=== PATIENT | female | born 1960 | race Caucasian/White ===

== ENCOUNTER 2020-07-15 14:45 | Emergency (ER) | payer BC ==
[2020-07-15] MEDS ORDERED: Sodium Chloride 0.9% 10 ML Syringe FLUSH PRN (15:23)
--- NOTE | 2020-07-15 15:59 | EDM.PDOC ---
ED HPI GENERAL MEDICAL PROBLEM - General Chief Complaint: Genitourinary Problem Stated Complaint: BLOOD IN URINE/CHILLS Time Seen by Provider: 07/15/20 15:17 Source of Information: Reports: Patient, Old Records, RN Notes Reviewed History Limitations: Reports: No Limitations - History of Present Illness INITIAL COMMENTS - FREE TEXT/NARRATIVE: Patient is a 59-year-old female presenting to the emergency department with complaints of hematuria, low pelvic pain, low back pain, chills, and burning with urination. Symptoms began Thursday and have been progressively worsening since that time. She took a urine sample to [facility] yesterday and then another there today, however she has not been started on an antibiotic. She denies any known fever. Is had no nausea or vomiting. Denies diarrhea. She is had a little bit of a headache off and on for the last 3 days as well. Patient is approximately 40 days post Covid. Patient had the urinalysis results from yesterday available on her phone. Results of that showed moderate blood and 1+ leukocyte esterase. Results of urinalysis completed today at [place] showed moderate blood, nitrite positive, 1+ leukocyte esterase, 21-50 WBCs, greater than 30 RBCs, and few bacteria. Patient denies a history of kidney stones. She is had urinary tract infections in the past, however states they have never been this bad. She states that time when she would void, there would be enough blood present that it would develop clots. Lower Abdomen Pain Score (Numeric/FACES): 4 - Related Data Allergies Allergy/AdvReac Type Severity Reaction Status Date / Time No Known Allergies Allergy Verified 07/15/20 15:17 Past Medical History - Infectious Disease History Infectious Disease History: Reports: Novel Coronavirus - Past Surgical History Female Surgical History: Reports: Hysterectomy Social & Family History - Tobacco Use Tobacco Use Status *Q: Never Tobacco User Second Hand Smoke Exposure: No - Recreational Drug Use Recreational Drug Use: No ED ROS GENERAL - Review of Systems Review Of Systems: See Below Constitutional: Reports: Chills. Denies: Fever HEENT: Reports: No Symptoms Respiratory: Reports: No Symptoms. Denies: Shortness of Breath, Cough Cardiovascular: Reports: No Symptoms Endocrine: Reports: No Symptoms GI/Abdominal: Reports: Abdominal Pain (Suprapubic). Denies: Diarrhea, Nausea, Vomiting : Reports: Dysuria, Flank Pain, Frequency, Hematuria Musculoskeletal: Reports: No Symptoms Skin: Reports: No Symptoms Neurological: Reports: Headache Psychiatric: Reports: No Symptoms Hematologic/Lymphatic: Reports: No Symptoms Immunologic: Reports: No Symptoms ED EXAM, RENAL/ - Physical Exam Exam: See Below Exam Limited By: No Limitations General Appearance: Alert, WD/WN, No Apparent Distress Respiratory/Chest: No Respiratory Distress, Lungs Clear, Normal Breath Sounds, No Accessory Muscle Use, Chest Non-Tender Cardiovascular: Normal Peripheral Pulses, Regular Rate, Rhythm, No Edema, No Gallop, No JVD, No Murmur, No Rub GI/Abdominal: Normal Bowel Sounds, Soft, No Organomegaly, No Distention, No Abnormal Bruit, No Mass, Tender (Suprapubic) Back Exam: Normal Inspection, Full Range of Motion, CVA Tenderness (R). No: CVA Tenderness (L) Neurological: Alert, Oriented, CN II-XII Intact, Normal Cognition, Normal Gait, Normal Reflexes, No Motor/Sensory Deficits Psychiatric: Normal Affect, Normal Mood Skin Exam: Warm, Dry, Intact, Normal Color, No Rash Course - Vital Signs Last Recorded V/S: Last Vital Signs Temp 98.1 F 07/15/20 15:14 Pulse 81 07/15/20 15:14 Resp 16 07/15/20 15:14 BP 150/80 H 07/15/20 15:14 Pulse Ox 99 07/15/20 15:14 - Orders/Labs/Meds Orders: Active Orders 24 hr Category Date Time Status Peripheral IV Care [RC] . DIRECTED Care 07/15/20 15:23 Active Abdomen Pelvis wo Cont [CT] Stat Exams 07/15/20 15:37 Taken CULTURE URINE [RM] Stat Lab 07/15/20 17:13 Ordered Sodium Chloride 0.9% [Normal Saline] 1,000 ml Med 07/15/20 16:51 Active IV NOW Sodium Chloride 0.9% [Saline Flush] Med 07/15/20 15:23 Active 10 ml FLUSH ASDIRECTED PRN cefTRIAXone [Rocephin] 2 gm Med 07/15/20 17:00 Active Sodium Chloride 0.9% [Normal Saline] 100 ml IV Q24H Peripheral IV Insertion Adult [OM.PC] Stat Oth 07/15/20 15:23 Ordered Medication Orders Sodium Chloride (Normal Saline) 1,000 mls @ 150 mls/hr IV NOW STA Stop: 07/15/20 23:30 Last Admin: 07/15/20 17:04 Dose: 150 mls/hr Documented by: SONIA Ceftriaxone Sodium 2 gm/ (Sodium Chloride) 100 mls @ 200 mls/hr IV Q24H JUAN Last Admin: 07/15/20 17:04 Dose: 200 mls/hr Documented by: SONIA Sodium Chloride (Saline Flush) 10 ml FLUSH ASDIRECTED PRN PRN Reason: Keep Vein Open Last Admin: 07/15/20 17:04 Dose: 10 ml Documented by: SONIA Labs: Laboratory Tests 07/15/20 07/15/20 07/15/20 Range/Units 15:34 15:34 16:34 WBC 9.32 (3.98-10.04) K/mm3 RBC 3.92 L (3.98-5.22) M/mm3 Hgb 11.6 (11.2-15.7) gm/dl Hct 37.1 (34.1-44.9) % MCV 94.6 (79.4-94.8) fl MCH 29.6 (25.6-32.2) pg MCHC 31.3 L (32.2-35.5) g/dl RDW Std Deviation 47.0 H (36.4-46.3) fL Plt Count 249 (182-369) K/mm3 MPV 9.8 (9.4-12.3) fl Neut % (Auto) 68.8 (34.0-71.1) % Lymph % (Auto) 22.2 (19.3-51.7) % Saline % (Auto) 7.9 (4.7-12.5) % Eos % (Auto) 0.9 (0.7-5.8) Baso % (Auto) 0.1 (0.1-1.2) % Neut # (Auto) 6.41 H (1.56-6.13) K/mm3 Lymph # (Auto) 2.07 (1.18-3.74) K/mm3 Saline # (Auto) 0.74 H (0.24-0.36) K/mm3 Eos # (Auto) 0.08 (0.04-0.36) K/mm3 Baso # (Auto) 0.01 (0.01-0.08) K/mm3 Sodium 142 (136-145) mEq/L Potassium 4.1 (3.5-5.1) mEq/L Chloride 106 (98-107) mEq/L Carbon Dioxide 26 (21-32) mEq/L Anion Gap 14.1 (5-15) BUN 16 (7-18) mg/dL Creatinine 1.0 (0.55-1.02) mg/dL Est Cr Clr Drug Dosing 53.83 mL/min Estimated GFR (MDRD) 57 (>60) mL/min BUN/Creatinine Ratio 16.0 (14-18) Glucose 86 (74-106) mg/dL Calcium 9.5 (8.5-10.1) mg/dL Total Bilirubin 0.5 (0.2-1.0) mg/dL AST 21 (15-37) U/L ALT 35 (14-59) U/L Alkaline Phosphatase 98 (46-116) U/L C-Reactive Protein 0.8 (<1.0) mg/dL Total Protein 7.6 (6.4-8.2) g/dl Albumin 4.2 (3.4-5.0) g/dl Globulin 3.4 gm/dL Albumin/Globulin Ratio 1.2 (1-2) Urine Color Yellow (Yellow) Urine Appearance Clear (Clear) Urine pH 6.5 (5.0-8.0) Ur Specific [place] 1.020 (1.005-1.030) Urine Protein 2+ H (Negative) Urine Glucose (UA) Negative (Negative) Urine Ketones Negative (Negative) Urine Occult Blood 2+ H (Negative) Urine Nitrite Negative (Negative) Urine Bilirubin Negative (Negative) Urine Urobilinogen 0.2 (0.2-1.0) Ur Leukocyte Esterase 3+ H (Negative) Urine RBC 30-40 H (0-5) /hpf Urine WBC 50-75 H (0-5) /hpf Ur Epithelial Cells 0-5 (0-5) /hpf Urine Bacteria Few (FEW) /hpf Urine Mucus Few (FEW) /hpf Meds: Medications Generic Name Dose Route Start Last Admin Trade Name Freq PRN Reason Stop Dose Admin Sodium Chloride 1,000 mls @ 150 mls/hr 07/15/20 16:51 07/15/20 17:04 Normal Saline IV 07/15/20 23:30 150 mls/hr NOW STA Administration Ceftriaxone Sodium 2 gm/ 100 mls @ 200 mls/hr 07/15/20 17:00 07/15/20 17:04 Sodium Chloride IV 200 mls/hr Q24H JUAN Administration Sodium Chloride 10 ml 07/15/20 15:23 07/15/20 17:04 Saline Flush FLUSH 10 ml ASDIRECTED PRN Administration Keep Vein Open - Radiology Interpretation Free Text/Narrative:: Patient is a 5-year-old female presenting to the emergency department with complaints of chills, dysuria, hematuria, suprapubic pain, and right-sided flank pain. Symptoms began on Thursday and have been progressively worsening since that time. Urinalysis is were completed at [facility] and show signs of in fection as well as gross hematuria. She has not been started on antibiotic thus far. She does have right-sided CVA tenderness. I have ordered a CBC, CMP, CRP, urinalysis, and a CT scan of the abdomen pelvis to rule out kidney stone. - Re-Assessments/Exams Free Text/Narrative Re-Assessment/Exam: Patient is a 59-year-old female presenting to the emergency department with complaints of hematuria, dysuria, chills, suprapubic pain, and right-sided flank pain. Symptoms started on Thursday and have been progressively worsening. She had urinalysis done at [facility] yesterday and today both of which showed a urinary tract infection. She has not been started on an antibiotic thus far. On exam, she does have suprapubic tenderness as well as some fairly significant right-sided CVA tenderness. There is concern that she could have an underlying kidney stone. I ordered CBC, CMP, CRP, urinalysis, and a CT scan of the abdomen pelvis without contrast. 07/15/20 17:15 Hematology was grossly unremarkable. Urinalysis showed 3+ leukocyte esterase, 30-40 RBCs, 50-75 WBCs. I have ordered Rocephin 2 g IV as well as a urine culture. CT scan of the abdomen pelvis shows a thickened irregular bladder wall. There are some adjacent fat stranding. Correlate to exclude cystitis/urinary tract infection. No evidence of urinary tract calculi. Since patient has fairly significant CVA tenderness, I will treat her with ciprofloxacin is so as to penetrate the kidney as well. We will provide an Insta med prescription for this. Discharge instructions as documented. Departure - Departure Time of Disposition: 17:15 Disposition: Home, Self-Care 01 Condition: Good Clinical Impression: UTI, Urinary tract infectious disease - Discharge Information *PRESCRIPTION DRUG MONITORING PROGRAM REVIEWED*: No *COPY OF PRESCRIPTION DRUG MONITORING REPORT IN PATIENT SELENA: No Instructions: Urinary Tract Infection, Adult, [id number] Referrals: Judith Earl MD [Primary Care Provider] - Forms: ED Department Discharge Additional Instructions: You were seen in the emergency department today for complaints of blood in your urine, burning with urination, back pain, and lower abdominal pain. Your work- up included blood work, urinalysis and a CT scan of your abdomen and pelvis. Results of your work-up do show that you have a urinary tract infection. There was some concern that she could possibly have a kidney stone, however radiologist read of your CT scan shows no kidney stones. It does show some thickening of your bladder wall which would be consistent with a urinary tract infection or cystitis. While in the ER, you received Rocephin through your IV which is an antibiotic. You have been provided us prescription for ciprofloxacin. Take this medication as prescribed. Your urine has been sent for culture. If the culture should grow to bacteria that is not susceptible to the ciprofloxacin, you will be notified and your antibiotic will be changed. If you experience any new or worsening symptoms of concern, please not hesitate to return to the emergency department. Sepsis Event Note (ED) - Evaluation Sepsis Screening Result: No Definite Risk - Focused Exam Vital Signs: Vital Signs Temp Pulse Resp BP Pulse Ox 07/15/20 15:14 98.1 F 81 16 150/80 H 99 - My Orders Last 24 Hours: My Active Orders 07/15/20 15:23 Peripheral IV Care [RC] . DIRECTED Sodium Chloride 0.9% [Saline Flush] 10 ml FLUSH ASDIRECTED PRN Peripheral IV Insertion Adult [OM.PC] Stat 07/15/20 15:37 Abdomen Pelvis wo Cont [CT] Stat 07/15/20 16:51 Sodium Chloride 0.9% [Normal Saline] 1,000 ml IV NOW 07/15/20 17:00 cefTRIAXone [Rocephin] 2 gm Sodium Chloride 0.9% [Normal Saline] 100 ml IV Q24H 07/15/20 17:13 CULTURE URINE [RM] Stat - Assessment/Plan Last 24 Hours: My Active Orders 07/15/20 15:23 Peripheral IV Care [RC] . DIRECTED Sodium Chloride 0.9% [Saline Flush] 10 ml FLUSH ASDIRECTED PRN Peripheral IV Insertion Adult [OM.PC] Stat 07/15/20 15:37 Abdomen Pelvis wo Cont [CT] Stat 07/15/20 16:51 Sodium Chloride 0.9% [Normal Saline] 1,000 ml IV NOW 07/15/20 17:00 cefTRIAXone [Rocephin] 2 gm Sodium Chloride 0.9% [Normal Saline] 100 ml IV Q24H 07/15/20 17:13 CULTURE URINE [RM] Stat
[2020-07-15] MEDS ORDERED: Sodium Chloride 0.9% 1,000 ML IV STA (16:51)
[2020-07-15] MEDS ORDERED: cefTRIAXone 2 GM in Sodium Chloride 0.9% 100 ML IV SCH (17:00)
--- NOTE | 2020-07-19 13:27 | CT ---
"PROCEDURE INFORMATION: Exam: CT Abdomen And Pelvis Without Contrast Exam date and time: 07/15/2020 4:26 PM Age: 59 years old Clinical indication: Abdominal pain; Patient HX: RT flank pain blood in urine ? renal stone TECHNIQUE: Imaging protocol: Computed tomography of the abdomen and pelvis without contrast. Radiation optimization: All CT scans at this facility use at least one of these dose optimization techniques: automated exposure control; mA and/or kV adjustment per patient size (includes targeted exams where dose is matched to clinical indication); or iterative reconstruction. COMPARISON: No relevant prior studies available. FINDINGS: Liver: Tiny calcified granulomata within the liver. Gallbladder and bile ducts: Gallbladder is slightly contracted. Pancreas: Normal. No ductal dilation. Spleen: Normal. No splenomegaly. Adrenals: Normal. No mass. Kidneys and ureters: Cyst medial left kidney. Cyst medial upper pole right kidney. Stomach and bowel: Few scattered colonic diverticula. Moderate amount of stool throughout the colon. Appendix: No evidence of appendicitis. Intraperitoneal space: Unremarkable. No free air. No significant fluid collection. Vasculature: Unremarkable. No abdominal aortic aneurysm. Lymph nodes: Unremarkable. No enlarged lymph nodes. Urinary bladder: Bladder wall is diffusely thickened possibly related to underdistention and/or inflammation.. Suggestion of some fat stranding/inflammation adjacent to the bladder. Reproductive: Unremarkable as visualized. Bones/joints: Unremarkable. No acute fracture. Soft tissues: Tiny umbilical hernia containing fat. LAMONTE BENSON | Final Radiology Report CONFIDENTIALITY STATEMENT This report is intended only for use by the referring physician, and only in accordance with law. If you received this in error, call [phone]. Page 2 of 2 IMPRESSION: 1. Thickened irregular bladder wall. There is some adjacent fat stranding. Correlate to exclude cystitis/urinary tract infection. 2. No evidence for urinary tract calculi. Thank you for allowing us to participate in the care of your patient. Dictated and Authenticated by: Maurice Anderson MD 07/15/2020 6:08 PM Central Time ([place] & [place]) BLU"
== END 2020-07-15 17:40 | disposition home or self-care (01) ==
LOC: JD.ED 14:45
DX: N39.0 Urinary tract infection, site not specified (principal)
CPT/HCPCS: 36415; 74176; 80053; 81001; 85025; 86140; 87086; 87088; 87184; 87186; 96365; 99284; J0696; J7030; J7050

== ENCOUNTER 2024-01-15 17:32 | Emergency (ER) | payer BC ==
[2024-01-15] MEDS: Sodium Chloride 0.9% 2,000 ML IV SCH (19:15)
[2024-01-15 20:01] LABS: BARBITURATE SCREEN,URINE NEGATIVE (CUTOFF=200); BENZODIAZEPINES SCREEN,URINE NEGATIVE (CUTOFF=150); BUPRENORPHINE SCREEN,URINE NEGATIVE (CUTOFF=10); METHADONE SCREEN, URINE NEGATIVE (CUTOFF=200); METHAMPHETAMINES SCREEN, URINE NEGATIVE (CUTOFF=500); OXYCODONE SCREEN,URINE NEGATIVE (CUT0FF=100); THC SCREEN,URINE 20 NG/ML PRESUMPTIVE POSITIVE (CUTOFF=50)
[2024-01-15 20:02] LABS: AMPHETAMINES SCREEN, URINE NEGATIVE (CUTOFF=500)
== END 2024-01-15 20:34 | disposition home or self-care (01) ==
LOC: JD.ED 17:32
DX: T40.711A Poisoning by cannabis, accidental (unintentional), initial encounter (principal); F12.10 Cannabis abuse, uncomplicated; E78.00 Pure hypercholesterolemia, unspecified; Z79.899 Other long term (current) drug therapy; Z86.16 Personal history of COVID-19; Z90.710 Acquired absence of both cervix and uterus
CPT/HCPCS: 80306; 93005; 99285; J7030; 93010; 99283